=== PATIENT | male | born 1955 | race Caucasian/White ===

== ENCOUNTER → 2021-11-26 | Outpatient (CLI) | payer MEDICARE, BC ==
[~2021-11-26] MED LIST: ACIPHEX20 MG PO; ALTACE10 MG PO; ASPIR-LOW81 MG PO; ASPIR-LOX325 MG PO; ASPIRIN E.C. 8181 MG PO; CLOPIDOGREL PO; CRESTOR20 MG PO; CRESTOR40 MG PO; DIOVAN 160MG160 MG PO; DIOVAN160 MG PO; EFFIENT10 MG PO; IMDUR 30MG30 MG/TAB PO; LOPRESSOR 550 MG/TAB PO; NEXIUM40 MG PO; TOPROL XL 50MG50 MG PO; TOPROL XL50 MG PO; TRICOR145 MG PO; ZETIA 10MG TAB10 MG PO; ZETIA10 MG PO
== END ==
LOC: COL.RAD 09:46
DX: N40.1 Benign prostatic hyperplasia with lower urinary tract symptoms (principal); Z85.520 Personal history of malignant carcinoid tumor of kidney